=== PATIENT | male | born 1995 | race Caucasian/White ===

== ENCOUNTER 2017-04-30 19:52 | Emergency (ER) | payer BC ==
[~2017-04-30] VITALS: Ht 188 cm; Wt 84.1 kg
[~2017-04-30 19:52] MED LIST: ABSORICA40 MG PO; CEPHALEXIN500 M1 PO; NORCO 325 MG-51 TAB PO
[2017-04-30 19:54] VITALS: BP 130/77; TEMP 98.9
[2017-04-30 21:00] VITALS: PULSE 100
== END 2017-04-30 21:01 | disposition home or self-care (01) ==
LOC: COL.ER 19:52
DX: M23.91 Unspecified internal derangement of right knee (principal); X50.1XXA Overexertion from prolonged static or awkward postures, initial encounter; Y93.67 Activity, basketball

== ENCOUNTER 2018-05-19 19:39 | Emergency (ER) | payer BC ==
[~2018-05-19] VITALS: Ht 188 cm; Wt 86.4 kg
[2018-05-19 19:42] VITALS: TEMP 98.6
[2018-05-19 20:06] LABS: HEMATOCRIT 44.6 % (42.0-52.0); HEMOGLOBIN 15.1 g/dl (13.5-18.0); MEAN CELL VOLUME 86 fl (80.0-100.0); MEAN CORPUSCULAR HEMOGLOBIN 29 pg (27.0-31.0); MEAN CORPUSCULAR HGB CONC 34 g/dl (33.0-37.0); MEAN PLATELET VOLUME 10.5 fl (7.4-10.4); PLATELET COUNT 133 K/mm3 (130-400); RED BLOOD COUNT 5.18 M/mm3 (4.20-5.60); REDCELL DISTRIBUTION WIDTH-CV 13.1 % (11.5-14.5)
[2018-05-19 20:31] LABS: ALBUMIN 4.3 gm/dL (3.5-5.0); C-REACTIVE PROTEIN 2.6 mg/dL (0.0-0.9); CALCIUM 9.4 mg/dL (8.4-10.2); CREATININE, serum 1.05 mg/dL (0.66-1.25); POTASSIUM 3.8 mmol/L (3.4-5.0); TOTAL PROTEIN 8.3 gm/dL (6.4-8.2)
[2018-05-19 21:11] LABS: BAND 4 % (0-10); LYMPHOCYTE 31 % (20.0-51.0); METAMYELOCYTE 3 % (0-0); NEUTROPHILS 46 % (42.0-75.2); PLATELET ESTIMATE NORMAL (NORMAL)
[2018-05-19] MEDS ORDERED: ZOFRAN 4MG T4 MG/TAB PO (21:20)
[2018-05-19] MEDS ORDERED: CEPHALEXIN500 M1 PO (21:20)
[2018-05-19 22:19] VITALS: BP 116/58; PULSE 100
== END 2018-05-19 22:22 | disposition home or self-care (01) ==
LOC: COL.ER 19:39
PROVIDERS: Emergency Medicine
DX: J02.9 Acute pharyngitis, unspecified (principal); B27.90 Infectious mononucleosis, unspecified without complication; R10.12 Left upper quadrant pain
CPT/HCPCS: J1100; J2405; J7030